=== PATIENT | female | born 1940 | race Caucasian/White ===

== ENCOUNTER 2017-09-07 07:53 | Observation (INO) | payer MEDICARE, OTHER ==
[~2017-09-07] VITALS: Ht 160 cm; Wt 96.2 kg
[~2017-09-07 07:53] MED LIST: ATORVASTATIN CA20 MG PO; CALTRATE 600 W1 EACH PO; CLOPIDOGREL75 MG PO; HYDROCHLOROTHIA25 MG PO; LISINOPRIL10 MG PO; METOPROLOL TART50 MG PO; WARFARIN SODIU2.5 MG PO
[2017-09-07 08:59] LABS: BASOPHILS % 0.3 % (0.0-1.0); EOSINOPHILS # (AUTO) 0.2 (0.0-0.4); EOSINOPHILS % 3.9 % (0.0-6.0); HEMOGLOBIN 13.1 g/dL (12.0-16.0); LYMPHOCYTES # (AUTO) 1.1 (1.0-3.2); LYMPHOCYTES % 17.2 % (18.0-39.1); MONOCYTES # (AUTO) 0.6 (0.2-0.8); MONOCYTES % 9.4 % (4.4-11.3); NEUTROPHILS # (AUTO) 4.2 (2.1-6.9); NEUTROPHILS % 68.7 % (38.7-80.0); PLATELET COUNT 160 x10e3/uL (140-360); RED CELL DISTRIBUTION WIDTH 14.6 % (11.7-14.4)
[2017-09-07 09:05] LABS: INR 0.98; PROTHROMBIN TIME 13.5 seconds (11.9-14.5)
[2017-09-07 09:18] LABS: ALBUMIN 3.6 g/dL (3.5-5.0); ALBUMIN/GLOBULIN RATIO 1.1 (0.8-2.0); ANION GAP 11.2 mmol/L (8-16); CALCIUM 9.8 mg/dL (8.4-10.2); CHOL/HDL RATIO 2.1 (3.0-3.6); CREATININE, SERUM 1.13 mg/dL (0.57-1.11); POTASSIUM 5.2 mmol/L (3.5-5.1)
[2017-09-07 09:29] VITALS: BP 144/70
[2017-09-07] MEDS ORDERED: FENTANYL CITRATE/PF 100MCG/2 ML INJ ONE (10:15)
[2017-09-07] MEDS ORDERED: SODIUM CHLORIDE 0.9% 1000ML 1,000 ML ONE ×2 (10:16→10:36)
[2017-09-07] MEDS ORDERED: HEPARIN SOD/SOD CHLORIDE 2,000 ML ONE (10:16)
[2017-09-07] MEDS ORDERED: LIDOCAINE HCL 2% LOCAL 20 ML VIAL ONE (10:16)
[2017-09-07] MEDS ORDERED: IOPAMIDOL 300MG/ML 100 ML INFUS..BTL IV ONE (10:16)
[2017-09-07] MEDS ORDERED: MIDAZOLAM HCL 2 MG/2 ML VIAL ONE (10:16)
[2017-09-07] MEDS ORDERED: VERAPAMIL HCL 2.5 MG/ML 2 ML VIAL ONE (10:36)
[2017-09-07] MEDS ORDERED: PROTAMINE SULFATE 10 MG/ML 5 ML VIAL ONE (10:56)
[2017-09-07] MEDS ORDERED: SODIUM CHLORIDE 0.9% 100 ML 100 ML ONE (10:57)
--- NOTE | 2017-09-07 11:42 | Operative Report ---
DATE OF PROCEDURE: September 07, 2017 INDICATIONS: Peripheral arterial disease with claudication. PROCEDURES PERFORMED 1. Unilateral extremity angiogram with 3rd-order catheter placement from the right femoral artery to the right popliteal artery. 2. Atherectomy and drug-coated balloon angioplasty of the right femoral artery. 3. Atherectomy and angioplasty of the right tibioperoneal trunk/posterior tibial artery. COMPLICATIONS: None. RECOMMENDATIONS: Resumption of anticoagulation with warfarin and aspirin. Access was obtained in the right femoral artery in an antegrade fashion, and a 6-Omani sheath was placed. Proximal SFA 50% , distal SFA 90%. Right anterior tibial artery is completely occluded. Right tibioperoneal trunk and ostial posterior tibial artery had 90% tandem lesions. The patient received 9,000 units of intra-arterial heparin. The lesions were crossed using a ViperWire. Orbital atherectomy of the SFA and the right posterior tibial artery was performed with large amounts of visible thrombus necessitating secondary thrombectomy with manual aspiration. Balloon angioplasty of the posterior tibial trunk/posterior tibial artery was performed using a 2.5-mm balloon, and a drug-coated 5-mm balloon was used to angioplasty the right femoral artery. Excellent end result, less than 10% stenosis, 2-vessel runoff to the right foot. No complications. Heparin was reversed with intravenous infusion of protamine. Sheath was discontinued. Patient was observed in the hospital overnight. Job#: [id number]
[2017-09-07 13:30] VITALS: BP 145/70
[2017-09-07 14:22] VITALS: BP 145/70
[2017-09-07 16:20] VITALS: BP 134/63
[2017-09-07] MEDS: SODIUM CHLORIDE 0.9% 1000ML 1,000 ML IV SCH ×2 (16:24→20:13)
[2017-09-07] MEDS ORDERED: WARFARIN SOD 2.5 MG TAB PO SCH (17:00)
[2017-09-07 20:00] VITALS: BP_SYST 134; BP_SYST 146; BP_DIAS 63; BP_DIAS 67
[2017-09-07] MEDS ORDERED: ATORVASTATIN 40 MG TAB PO SCH (21:00)
[2017-09-07] MEDS ORDERED: ATORVASTATIN 20 MG TAB PO SCH (21:00)
[2017-09-08 01:13] VITALS: BP 105/46
[2017-09-08 04:00] VITALS: BP 117/60
[2017-09-08 06:51] LABS: BASOPHILS % 0.4 % (0.0-1.0); EOSINOPHILS # (AUTO) 0.2 (0.0-0.4); EOSINOPHILS % 3.8 % (0.0-6.0); HEMOGLOBIN 11.1 g/dL (12.0-16.0); LYMPHOCYTES # (AUTO) 0.9 (1.0-3.2); LYMPHOCYTES % 18.5 % (18.0-39.1); MEAN CORPUSCULAR HEMOGLOBIN 32.7 pg (28-32); MEAN CORPUSCULAR HGB CONC 32.6 g/dL (31-35); MEAN CORPUSCULAR VOLUME 100.3 fL (81-99); MONOCYTES # (AUTO) 0.6 (0.2-0.8); MONOCYTES % 11.7 % (4.4-11.3); NEUTROPHILS # (AUTO) 3.2 (2.1-6.9); NEUTROPHILS % 65.2 % (38.7-80.0); PLATELET COUNT 121 x10e3/uL (140-360); RED BLOOD COUNT 3.39 x10e6/uL (3.6-5.1); RED CELL DISTRIBUTION WIDTH 14.8 % (11.7-14.4)
[2017-09-08 07:15] LABS: BLOOD UREA NITROGEN 34 mg/dL (7-26); BUN/CREATININE RATIO 44 (6-25); CALCIUM 8.5 mg/dL (8.4-10.2); CARBON DIOXIDE 22 mmol/L (22-29); CHLORIDE 114 mmol/L (98-107); CREATININE, SERUM 0.77 mg/dL (0.57-1.11); EST GLOMERULAR FILTRATION RATE > 60 ML/MIN (60-); GLUCOSE 106 mg/dL (74-118); SODIUM 144 mmol/L (136-145)
[2017-09-08 08:15] VITALS: BP 139/61
[2017-09-08 08:17] VITALS: BP 139/61
[2017-09-08] MEDS ORDERED: LISINOPRIL 10 MG TAB PO SCH (09:00)
[2017-09-08] MEDS ORDERED: OYST-CAL-D 500MG TABLET PO SCH (09:00)
[2017-09-08] MEDS ORDERED: LISINOPRIL 20 MG TAB PO SCH (09:00)
[2017-09-08] MEDS ORDERED: CLOPIDOGREL BISULFATE 75 MG TAB PO SCH (09:00)
[2017-09-08] MEDS ORDERED: NON-FORMULARY MEDICATION (Calcium Carbonate/Vitamin D3 (Caltrate 600 W-D Tablet) 1 TAB) PO SCH (09:00)
[2017-09-08] MEDS ORDERED: METOPROLOL TARTRATE 50 MG TAB PO SCH (09:00)
[2017-09-08] MEDS ORDERED: WARFARIN SOD 2.5 MG TAB PO SCH (09:00)
[2017-09-08] MEDS ORDERED: HYDROCHLOROTHIAZIDE 25 MG TAB PO SCH (09:00)
[2017-09-08] MEDS: SODIUM CHLORIDE 0.9% 1000ML 1,000 ML IV SCH (09:50)
[2017-09-08 12:05] VITALS: BP 106/53
[2017-09-08] MEDS ORDERED: ASPIR 8181 MG (16:10)
[2017-09-08] MEDS ORDERED: PLAVIX75 MG PO (16:10)
[2017-09-08 16:38] VITALS: BP 149/64
== END 2017-09-08 17:52 | disposition home or self-care (01) ==
LOC: CATH LAB 07:53 → IMCU 13:19
PROVIDERS: ADMIT Internal Medicine Interventional Cardiology; ATTEND Internal Medicine Interventional Cardiology
DX: I70.211 Atherosclerosis of native arteries of extremities with intermittent claudication, right leg (principal); I70.92 Chronic total occlusion of artery of the extremities; I74.3 Embolism and thrombosis of arteries of the lower extremities; I48.2 Chronic atrial fibrillation; Z79.01 Long term (current) use of anticoagulants; Z79.82 Long term (current) use of aspirin; Z79.02 Long term (current) use of antithrombotics/antiplatelets; I27.20 Pulmonary hypertension, unspecified
CPT/HCPCS: 36415 ×2; 37225; 37229; 75625; 80048; 80053; 80061; 85025 ×2; 85610; C1724; C1725 ×2; C1766; C1769 ×3; C1887; G0378 ×2; J2001; J2250; J2720; J7030 ×2; Q9967; 36140; 37224; 77002; 92924

== ENCOUNTER 2019-01-31 06:23 | Day surgery (SDC) | payer MEDICARE, OTHER ==
[2019-01-27 10:37] LABS: BASOPHILS % 0.4 % (0.0-1.0); EOSINOPHILS # (AUTO) 0.1 (0.0-0.4); HEMATOCRIT 44.6 % (34.2-44.1); HEMOGLOBIN 14.3 g/dL (12.0-16.0); LYMPHOCYTES # (AUTO) 1.2 (1.0-3.2); LYMPHOCYTES % 17.8 % (18.0-39.1); MEAN CORPUSCULAR HEMOGLOBIN 31.8 pg (28-32); MEAN CORPUSCULAR HGB CONC 32.1 g/dL (31-35); MEAN CORPUSCULAR VOLUME 99.1 fL (81-99); MONOCYTES # (AUTO) 0.6 (0.2-0.8); MONOCYTES % 7.9 % (4.4-11.3); NEUTROPHILS % 71.3 % (38.7-80.0); PLATELET COUNT 188 x10e3/uL (140-360); RED CELL DISTRIBUTION WIDTH 16.1 % (11.7-14.4)
[2019-01-27 10:52] LABS: ALBUMIN/GLOBULIN RATIO 1.4 (0.8-2.0); ANION GAP 12.2 mmol/L (8-16); CALCIUM 9.7 mg/dL (8.4-10.2); CREATININE, SERUM 1.01 mg/dL (0.57-1.11); POTASSIUM 4.2 mmol/L (3.5-5.1)
[~2019-01-31] VITALS: Ht 160 cm; Wt 84.8 kg
[~2019-01-31 06:23] MED LIST changes: +ASPIR 8181 MG; +PLAVIX75 MG PO
--- OUTSIDE RECORDS SUMMARY | 2019-01-31 06:27 | XMS REPORT | Summary of Care ---
Author Author HUNG Hightower, KVNG Organization Unknown Address Unknown Phone Unavailable Care Team Providers Care Safety Glass Installer Name Role Phone KVNG PERSAUD M.D. 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 Medications Name Dates Details Warfarin Sodium TABS Active Doxycycline Hyclate TABS * Refills: 0 Active Lisinopril TABS * Refills: 0 Active Furosemide TABS * Refills: 0 Active traMADol HCl - 50 MG Oral Tablet * Refills: 0 Active Clopidogrel Bisulfate 75 MG Oral Tablet * Refills: 0 Active Vitamin D 78549 UNIT CAPS * Refills: 0 Active L-Thyroxine 25 MCG TABS * Refills: 0 Active Atorvastatin Calcium 40 MG Oral Tablet * Refills: 0 Active Dorzolamide HCl - 2 % Ophthalmic Solution * Refills: 0 Active Latanoprost 0.005 % Ophthalmic Solution * Refills: 0 Active Geovanna Aspirin 325 MG CAPS * Refills: 0 Active Nitro-Dur 0.4 MG/HR Transdermal Patch 24 Hour * Refills: 0 Active Diclofenac Sodium 75 MG Oral Tablet Delayed Release TAKE 1 TABLET TWICE DAILY with food * Quantity: 60 Refills: 4 KVNG PERSAUD M.D. Start : 31-Aug-2018 End : 28-Jan-2019 Active Allergies and Adverse Reactions Name Dates Details No Known Drug Allergies (Allergy) Status: Active Past Medical History Name Dates Details History of Glaucoma (365.9, H40.9) Status: Resolved History of High blood pressure (401.9, I10) Status: Resolved History of Osteoporosis (733.00, M81.0) Status: Resolved Procedures Procedure Dates Details History of No history of surgery Completed Immunization Name Dates Details Immunizations not documented Family History Name Dates Details Family history of Diabetes (250.00, E11.9) Status: Active Social History Name Dates Details - Status: Name Dates Details Never smoker Vital Signs Date Test Result Details No Known Vitals to report Results Date Description Value Details Results not documented Plan of Care Name Dates Details Planned Observations Planned Goals not documented Interventions Provided Medication Changes* Diclofenac Sodium 75 MG Oral Tablet Delayed Release - Start Labs/Procedures/Imaging* [U] XRAY HAND MIN 3 VWS LEFT [id number]; Done: 31 Aug 2018 Supplies* DME; Done: 31 Aug 2018 Plan* Completed at Today's Appointment: * Sugars were reviewed and the findings were discussed in detail. Both surgical and non-surgical treatment options were discussed. Non-surgical treatment options include rest, medications, bracing, activity modification, and physical or occupational therapy. Surgical options were discussed in detail. * Patient Education/Instructions: * Elevation of Extremity * Apply Ice as Instructed * DME Orders: * Wrist Brace * Orders: * Medications: * - Diclofenac ER 75mg. Take 1 daily as needed for pain. Diclofenac ER is an anti-inflammatory, pain medication. Take with food and only as prescribed by a physician. * - Tramadol 50mg. Take 1-2 every 4-6 hours as needed for pain. Tramadol is a narcotic pain medication. Use only as directed. Do NOT drive or operate machinery while using this medication. * Follow Up: * Return to the clinic in 2 weeks or as needed. Instructions Name Dates Details Instructions not documented Encounters Appointment; KVNG PERSAUD M.D. Encounter Diagnosis: Problem not documented On: 31-Aug-2018 15:20
[2019-01-31] MEDS ORDERED: LIDOCAINE HCL 2% LOCAL 20 ML VIAL ONE (06:41)
[2019-01-31] MEDS ORDERED: HEPARIN SOD/SOD CHLORIDE 2,000 ML ONE (06:42)
[2019-01-31] MEDS ORDERED: IOPAMIDOL 300MG/ML 100 ML INFUS..BTL IV ONE (06:42)
[2019-01-31] MEDS ORDERED: LEVOTHYROXINE50 MCG PO (06:51)
[2019-01-31] MEDS ORDERED: FUROSEMIDE40 MG PO (06:51)
[2019-01-31] MEDS ORDERED: VITAMIN D250000 UNIT PEG (06:51)
[2019-01-31] MEDS ORDERED: DORZOLAMIDE-TIM10 ML OP (06:51)
[2019-01-31 07:00] VITALS: BP 130/58
[2019-01-31] MEDS ORDERED: MIDAZOLAM HCL 2 MG/2 ML VIAL ONE (07:06)
[2019-01-31] MEDS ORDERED: HEPARIN SOD (PORCINE) 1000 UNIT/ML 30ML ONE (07:06)
[2019-01-31] MEDS ORDERED: SODIUM CHLORIDE 0.9% 1000ML 1,000 ML ONE ×2 (07:07→08:15)
[2019-01-31] MEDS ORDERED: FENTANYL CITRATE/PF 100MCG/2 ML INJ ONE (07:07)
[2019-01-31] MEDS ORDERED: NITROGLYCERIN/D5W 200 MCG/ML 250 ML ONE (07:07)
[2019-01-31] MEDS ORDERED: VERAPAMIL HCL 2.5 MG/ML 2 ML VIAL ONE (08:15)
[2019-01-31] MEDS ORDERED: TICAGRELOR 90 MG TABLET ONE (08:34)
[2019-01-31] MEDS ORDERED: ASPIRIN 325 MG TAB ONE (08:34)
[2019-01-31 08:37] VITALS: BP 151/63
[2019-01-31 08:45] VITALS: BP 136/58
[2019-01-31 09:00] VITALS: BP 141/64
[2019-01-31 09:08] VITALS: BP 141/64
--- NOTE | 2019-01-31 09:13 | NUR ---
Patient admitted to recovery. Patient is AAOx3. Patient vitals stable. Left groin site clean and dry. Pedal pulses palpable. Family at bedside. Patient remains supine. NO bleeding noted to groin site
[2019-01-31 09:30] VITALS: BP 172/72
--- NOTE | 2019-01-31 11:46 | Operative Report ---
DATE OF PROCEDURE: 01/31/2019 SURGEON: Cameron Mcdonald MD INDICATION: Peripheral arterial disease, claudication of the right lower extremity. COMPLICATIONS: None. PROCEDURES PERFORMED: 1. Abdominal aortogram. 2. Bilateral lower extremity angiograms. 3. Selective catheter placement from the left femoral artery to the right superficial femoral artery. 4. Additional third-order catheter placement from the left femoral artery to the right anterior tibial artery. 5. Atherectomy and drug-coated balloon angioplasty of the right superficial femoral artery. 6. Secondary thrombectomy of the right femoral artery. 7. Deployment of left groin Perclose closure device. RECOMMENDATIONS: Staged intervention on the occluded right anterior tibial artery via pedal access. DESCRIPTION OF PROCEDURE: Access obtained in the left femoral artery using fluoroscopic guidance. A 6-Spanish sheath was placed. Abdominal aortogram demonstrated calcified abdominal aorta and iliacs with minimal disease. Right femoral artery proximally had 80% to 90% stenosis. Distal vessel was not well visualized. The catheter was then advanced from the left femoral artery to the right superficial femoral artery. Mild disease in the femoral-popliteal system. Tibial vessels were not well seen. The catheter was then advanced to the right anterior tibial artery, which was occluded in its midportion, reconstitution via the right peroneal artery with two-vessel runoff. The posterior tibial and tibioperoneal trunk on the right side had moderate 50% to 70% diffuse stenosis. Left femoral artery and popliteal artery were widely patent and infrapopliteal vessels were not well visualized in the left leg. A decision was made to intervene on the right femoral artery. The patient received 10,000 units of intravenous heparin for anticoagulation along with oral Brilinta and aspirin. Sheath was advanced from the left femoral artery to the right superficial femoral artery. Orbital atherectomy of the proximal right femoral artery was performed using the CSI 1.5 mm Burton. Large amounts of visible thrombus was noted for which manual aspiration thrombectomy was needed. Balloon angioplasty with a 6 mm Lutonix balloon was performed with excellent end result, two-vessel runoff to the right leg. Left groin sheath was removed. Perclose closure device applied without any complications. The patient was discharged home same day. MD OLIVIER Mclean/NADIR /[id number]
== END 2019-01-31 10:21 | disposition home or self-care (01) ==
LOC: CATH LAB 06:23
PROVIDERS: ATTEND Internal Medicine Interventional Cardiology
DX: I70.211 Atherosclerosis of native arteries of extremities with intermittent claudication, right leg (principal); Z01.812 Encounter for preprocedural laboratory examination; Z79.02 Long term (current) use of antithrombotics/antiplatelets; Z79.82 Long term (current) use of aspirin
CPT/HCPCS: 36415; 37186; 37225; 75625; 80053; 85025; C1724; C1725; C1769 ×2; C1887 ×2; C2623; J1644; J2001; J2250; J7030; Q9967; 36247; 75716

== ENCOUNTER → 2019-04-04 | Day surgery (SDC) | payer MEDICARE, OTHER ==
[2019-03-31 11:09] LABS: BASOPHILS % 0.5 % (0.0-1.0); EOSINOPHILS # (AUTO) 0.1 (0.0-0.4); EOSINOPHILS % 2.3 % (0.0-6.0); HEMOGLOBIN 14.4 g/dL (12.0-16.0); LYMPHOCYTES # (AUTO) 1.4 (1.0-3.2); LYMPHOCYTES % 22.5 % (18.0-39.1); MEAN CORPUSCULAR HEMOGLOBIN 32.4 pg (28-32); MEAN CORPUSCULAR VOLUME 101.4 fL (81-99); MONOCYTES # (AUTO) 0.6 (0.2-0.8); MONOCYTES % 10.3 % (4.4-11.3); NEUTROPHILS # (AUTO) 3.8 (2.1-6.9); NEUTROPHILS % 64.1 % (38.7-80.0); PLATELET COUNT 175 x10e3/uL (140-360); RED BLOOD COUNT 4.44 x10e6/uL (3.6-5.1); RED CELL DISTRIBUTION WIDTH 15.6 % (11.7-14.4)
[2019-03-31 11:22] LABS: ALBUMIN/GLOBULIN RATIO 1.3 (0.8-2.0); ANION GAP 12.2 mmol/L (8-16); CALCIUM 9.6 mg/dL (8.4-10.2); CREATININE, SERUM 1.04 mg/dL (0.57-1.11); POTASSIUM 4.2 mmol/L (3.5-5.1)
[2019-03-31 11:56] LABS: INR 1.33; PROTHROMBIN TIME 17.1 seconds (11.9-14.5)
--- NOTE | 2019-04-03 14:30 | NUR ---
Dr. Mcdonald notified of BUN 53 and eGFR 51. no new orders at this time.
[2019-04-04] VITALS (10 sets, daily range): BP systolic 143–170; BP diastolic 77–98
[~2019-04-04] VITALS: Ht 160 cm; Wt 84.4 kg
[~2019-04-04] MED LIST changes: -ASPIR 8181 MG; +ASPIR 8181 MG PO; +DORZOLAMIDE-TIM10 ML OP; +FAMOTIDINE20 MG PO; +FENTANYL CITRATE/PF 100MCG/2 ML INJ ONE; +FUROSEMIDE40 MG PO; +HEPARIN SOD/SOD CHLORIDE 2,000 ML ONE; +IOPAMIDOL 300MG/ML 100 ML INFUS..BTL IV ONE; +IOPAMIDOL 370 MG/ML 200 ML INFUS..BTL INJ ONE; +LEVOTHYROXINE50 MCG PO; +LIDOCAINE HCL 2% LOCAL 20 ML VIAL ONE; +MIDAZOLAM HCL 2 MG/2 ML VIAL ONE; +SODIUM CHLORIDE 0.9% 1000ML 1,000 ML ONE; +SODIUM CHLORIDE 0.9% 50ML 50 ML ONE; +VERAPAMIL HCL 2.5 MG/ML 2 ML VIAL ONE; +VITAMIN D250000 UNIT PO
--- NOTE | 2019-04-04 16:02 | NUR ---
7148 bedside report received from Akash DINERO. Alert oriented and appropriate, PERRLA, respirations even and unlabored to room air. Pulses x4 extremities equal and strong. Pedal pulses PT/DP 4. Cap fill brisk < 3 sec. TR band intact in Rt Foot NO gross issues pain pallor,pressure and in atrial fib w/o c/o CP or SOB, Skin warm and dry integrity appears . IV 20g to presents 100cchr via iv controller. Healthy w/o s/s of infiltration or complaint. Abdomen soft and supple. pt offered toileting, denies need to urinate or defecate. No personal affects with patient. Family daughter at bedside. Currently w/o complaint of pain or need. ds/aleta
--- NOTE | 2019-04-04 17:00 | NUR ---
1700 RADIAL Compression removal: Initial Cuff volume 10 cc 1700p -2cc Removed No hematoma/bleeding noted with normal neurovascular function. 1715p -2cc Removed No hematoma/ bleeding noted with normal neurovascular function. 1730p -2cc Removed No hematoma/bleeding noted with normal neurovascular function. 1800 -2cc Removed No hematoma/ bleeding noted with normal neurovascular function. Air removal completed. prepared for dc Stasis achieved sterile 2x2,Tegaderm, Coban dressing No hematoma, bleeding noted with normal neurovascular function. Wrist splint in place. Pt instructed on POC. Ds/Rn
--- NOTE | 2019-04-04 18:00 | NUR ---
1800 Pt meets DC criteria. Rt foot TR band site assessed for s/s of complication and presence of hematoma. Foot warm, dry, no discolor, and pulses present. IV removed from hand . Distal tip appears intact. VS WNL. Pt denies pain, sob, or need at this time. Family daughter at bedside. Review of discharge paperwork and follow up instructions. verbalized understanding. Pt to wheelchair and transported to front of hospital. Transferred to private vehicle under own strength w/o incident with DC paperwork in hand. ds/rn
--- NOTE | 2019-04-06 06:53 | Operative Report ---
DATE OF PROCEDURE: 04/04/2019 SURGEON: Cameron Mcdonald MD INDICATIONS: Peripheral arterial disease with claudication of the right lower extremity. PROCEDURES PERFORMED: 1. Ultrasound-guided access into the right dorsalis pedis artery. 2. Third-order catheter placement from the right dorsalis pedis artery to the right iliac artery with unilateral extremity angiogram. 3. Atherectomy and angioplasty of the right anterior tibial artery. 4. Secondary thrombectomy of the right anterior tibial artery. COMPLICATIONS: None. RECOMMENDATIONS: Dual antiplatelet therapy for life. DESCRIPTION OF PROCEDURE: Access obtained in the right dorsalis pedis artery using ultrasound guidance. 6-Algerian sheath was placed. 8000 units of intravenous heparin was administered for anticoagulation. Chronic total occlusion of the right anterior tibial artery was performed. Catheter was advanced from the right dorsalis pedis artery to the right iliac artery. Unilateral extremity angiogram demonstrated moderate disease in the right popliteal and femoral arteries. A decision was made to intervene on the right anterior tibial artery. The lesion was crossed using a Glidewire and the wire was exchanged to a Viper wire. Orbital atherectomy using a 1.25 mm micro crown was performed, following which a 3 mm balloon angioplasty with excellent end result, three vessel runoff to the right foot with no complications. Right foot sheath was removed. TR band was applied. The patient was discharged home same day. Cameron Mcdonald MD [facility]/MODL /[id number]
== END | disposition home or self-care (01) ==
LOC: CATH LAB 12:20
PROVIDERS: ATTEND Internal Medicine Interventional Cardiology
DX: I70.211 Atherosclerosis of native arteries of extremities with intermittent claudication, right leg (principal); I70.92 Chronic total occlusion of artery of the extremities; I48.2 Chronic atrial fibrillation; I27.20 Pulmonary hypertension, unspecified; I10 Essential (primary) hypertension; E78.00 Pure hypercholesterolemia, unspecified; Z79.01 Long term (current) use of anticoagulants; Z79.02 Long term (current) use of antithrombotics/antiplatelets; Z79.82 Long term (current) use of aspirin; Z68.32 Body mass index [BMI] 32.0-32.9, adult; Z82.49 Family history of ischemic heart disease and other diseases of the circulatory system
CPT/HCPCS: 36415; 37186; 37229; 75710; 80053; 85025; 85610; C1724; C1725; C1887 ×2; J2001; J2250; J3010; J7030; Q9967

== ENCOUNTER → 2020-03-05 | Day surgery (SDC) | payer MEDICARE, OTHER ==
[2020-02-29 12:45] LABS: BASOPHILS % 0.5 % (0.0-1.0); EOSINOPHILS # (AUTO) 0.2 (0.0-0.4); HEMATOCRIT 41.3 % (34.2-44.1); HEMOGLOBIN 12.4 g/dL (12.0-16.0); LYMPHOCYTES # (AUTO) 1.2 (1.0-3.2); LYMPHOCYTES % 19.4 % (18.0-39.1); MONOCYTES # (AUTO) 0.6 (0.2-0.8); MONOCYTES % 9.6 % (4.4-11.3); NEUTROPHILS # (AUTO) 4.3 (2.1-6.9); NEUTROPHILS % 67.2 % (38.7-80.0); PLATELET COUNT 201 x10e3/uL (140-360); RED BLOOD COUNT 4.13 x10e6/uL (3.6-5.1); RED CELL DISTRIBUTION WIDTH 14.6 % (11.7-14.4)
[2020-02-29 12:59] LABS: ALBUMIN 3.8 g/dL (3.5-5.0); ALBUMIN/GLOBULIN RATIO 1.1 (0.8-2.0); ANION GAP 12.4 mmol/L (8-16); CALCIUM 9.3 mg/dL (8.4-10.2); CREATININE, SERUM 1.19 mg/dL (0.57-1.11); POTASSIUM 4.4 mmol/L (3.5-5.1)
--- NOTE | 2020-03-01 11:34 | NUR ---
1134am phoned Charmaine Leonardo daughter Araseli who states pt has no Covid symptoms and currently quarantined for pre procedural precautions. She states Mom will bring home meds and unable to review with me medications at this time. States mother has had mutiple procedures and aware of her need.No current office history on file and will reach out to [facility] [place] to confirm anticoagulation holds. I did requested on voice mail at [facility] [place] to reach out to daughter Araseli to verify appropriate holds of med. Pre screen completed and daughter aware to contact staff if and elevation temp or conditions required case to be held. Encourage to reach out to MD office for concerns as well as soap slabber RN here to notify of cancelation needs.jose/aleta
[2020-03-05] VITALS (18 sets, daily range): BP systolic 118–172; BP diastolic 57–109
[~2020-03-05] VITALS: Ht 160 cm; Wt 90.7 kg
[~2020-03-05] MED LIST changes: -IOPAMIDOL 300MG/ML 100 ML INFUS..BTL IV ONE; +LATANOPROST2.5 ML OP; +MIRTAZIPINE PO; -SODIUM CHLORIDE 0.9% 50ML 50 ML ONE; -VERAPAMIL HCL 2.5 MG/ML 2 ML VIAL ONE
--- NOTE | 2020-03-05 08:45 | NUR ---
0845 am RECEIVING NOTE [employer] DESIGN[employer] DEPT............................................................... Bedside report received from Raymundo DINERO. Identifierx2. Alert oriented and appropriate, PERRLA, respirations even and unlabored to room air. Pulses x4 extremities equal and strong. Pedal pulses PT/DP X4 and marked. Cap fill brisk < 3 sec. Rt groin sheath .No gross issues pain,pallor pressure or dysrhythmia. Skin warm and dry integrity appears D/I. IV 20g to left wrist presents healthy w/o s/s of infiltration or complaint. Abdomen soft and supple. pt offered toileting, denies need to urinate or defecate. No personal affects with patient. Family daughter at bedside.. Pt and family verbalizes understanding of POC. Currently w/o complaint of pain or need. ds/rn
--- NOTE | 2020-03-05 09:02 | NUR ---
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 25 min hold sujey Mendieta Rn at standby Dstat applied with Tegaderm PPx4 present ds/rn
--- NOTE | 2020-03-05 09:03 | Operative Report ---
DATE OF PROCEDURE: 03/05/2020 SURGEON: Cameron Mcdonald MD INDICATION: Coronary artery disease, abnormal stress test. PROCEDURES PERFORMED: 1. Left heart catheterization, selective coronary angiography. 2. Conscious sedation, 35 minutes. BLOOD LOSS: Minimal. RECOMMENDATIONS: Medical therapy. DESCRIPTION OF PROCEDURE: Access obtained in the right femoral artery. A 6-Estonian sheath was placed. Coronary angiography demonstrated widely patent stent in the left anterior descending and circumflex artery. Mid right coronary artery 50% stenosis. No critical stenosis or occlusions were noted. No intervention deemed necessary. LV end-diastolic pressure of 14. No gradient across the aortic valve pullback. Right groin sheath removed under manual pressure. The patient discharged home same day. Cameron Mcdonald MD [facility]L /[id number]
--- NOTE | 2020-03-05 13:00 | NUR ---
1300pm ADMISSIONS [facility] DISCHARGE NURSING NOTE Pt meets DC criteria. Rt manual groin pull site assessed for s/s of complication and presence of hematoma. Skin warm, dry, no discolor, and pulses present. IV removed from left posterior iv site. Distal tip appears intact. VS WNL. Pt denies pain, sob, or need at this time. Family at bedside. Review of discharge paperwork and follow up instructions. verbalized understanding. Pt to wheelchair and transported to front of hospital. Transferred to private vehicle under own strength w/o incident with DC paperwork in hand. - jose/rn
== END | disposition home or self-care (01) ==
LOC: CATH LAB 07:20
PROVIDERS: ATTEND Internal Medicine Interventional Cardiology
DX: I25.118 Atherosclerotic heart disease of native coronary artery with other forms of angina pectoris (principal); Z01.812 Encounter for preprocedural laboratory examination; Z11.59 Encounter for screening for other viral diseases; Z95.5 Presence of coronary angioplasty implant and graft; I27.20 Pulmonary hypertension, unspecified; I73.9 Peripheral vascular disease, unspecified; I48.20 Chronic atrial fibrillation, unspecified
CPT/HCPCS: 36415; 80053; 85025; 93458; C1769; J2001; J2250; J3010; J7030; Q9967; U0002; 99152

== ENCOUNTER → 2020-06-14 | Day surgery (SDC) | payer MEDICARE, OTHER ==
[2020-06-11 09:42] LABS: BASOPHILS # (AUTO) 0.1 (0.0-0.1); BASOPHILS % 0.7 % (0.0-1.0); EOSINOPHILS # (AUTO) 0.2 (0.0-0.4); EOSINOPHILS % 2.5 % (0.0-6.0); HEMATOCRIT 41.4 % (34.2-44.1); HEMOGLOBIN 12.8 g/dL (12.0-16.0); LYMPHOCYTES # (AUTO) 1.2 (1.0-3.2); LYMPHOCYTES % 15.3 % (18.0-39.1); MEAN CORPUSCULAR HEMOGLOBIN 31.8 pg (28-32); MEAN CORPUSCULAR HGB CONC 30.9 g/dL (31-35); MEAN CORPUSCULAR VOLUME 102.7 fL (81-99); MONOCYTES # (AUTO) 0.7 (0.2-0.8); MONOCYTES % 9.3 % (4.4-11.3); NEUTROPHILS # (AUTO) 5.5 (2.1-6.9); NEUTROPHILS % 71.7 % (38.7-80.0); PLATELET COUNT 227 x10e3/uL (140-360); RED BLOOD COUNT 4.03 x10e6/uL (3.6-5.1)
[~2020-06-14] VITALS: Ht 162.6 cm; Wt 94.3 kg
[~2020-06-14] MED LIST changes: -FENTANYL CITRATE/PF 100MCG/2 ML INJ ONE; -HEPARIN SOD/SOD CHLORIDE 2,000 ML ONE; -IOPAMIDOL 370 MG/ML 200 ML INFUS..BTL INJ ONE; -LIDOCAINE HCL 2% LOCAL 20 ML VIAL ONE; -MIDAZOLAM HCL 2 MG/2 ML VIAL ONE; -SODIUM CHLORIDE 0.9% 1000ML 1,000 ML ONE
[2020-06-14 09:56] LABS: INR 1.56; PROTHROMBIN TIME 19.4 seconds (11.9-14.5)
[2020-06-14 09:57] LABS: PARTIAL THROMBOPLASTIN TIME 31.1 seconds (23.8-35.5)
[2020-06-14 11:08] VITALS: BP 152/85
--- NOTE | 2020-06-14 11:59 | Operative Report ---
DATE OF PROCEDURE: 06/14/2020 SURGEON: Michele Ramos MD PROCEDURES: EGD with biopsies. ADDITIONAL REFERRING PHYSICIAN: Dr. Cameron Mcdonald. INDICATIONS FOR EGD: Heartburn, acid reflux. MEDICATIONS: The patient was done under MAC, please see anesthesiologist's note. PROCEDURE IN DETAIL: With the patient in the left lateral decubitus position, a flexible fiberoptic Olympus gastroscope was introduced into the esophagus under direct visualization without any difficulty. There was some patchy erythema noted in distal esophagus. The scope was then advanced with ease into the stomach traversing a medium-size hiatal hernia. Mucosa overlying the antrum and the body revealed some patchy erythema and [id number] edema, and biopsies were obtained and sent to stain for H. pylori. An approximately 2 cm sessile lesion distal antrum peripyloric area that was somewhat umbilicated, suspicious for leiomyoma was biopsied. Pylorus was of normal contour and shape, was intubated with ease and the scope was advanced all the way to the second portion of the duodenum. Mucosa overlying the proximal second portion and the duodenal bulb appeared to be within normal limits. The scope was then withdrawn back into the stomach and retroflexed, mucosa overlying the fundus appeared to be within normal limits. The previously described hiatal hernia was also noted in the retroflexed position. The scope was then straightened out, it was subsequently withdrawn, and the patient tolerated the procedure well. IMPRESSION: 1. Distal esophagitis, mild. 2. Medium-sized hiatal hernia. 3. Gastritis, biopsied, biopsies sent to stain for Helicobacter pylori. 4. Rule out leiomyoma. PLAN: Follow up histology. Initiate Protonix 40 mg one p.o. q.a.m. before meals. Michele Ramos MD [facility]/MODL /[id number] cc: MD Panfilo Mclean MD
== END | disposition home or self-care (01) ==
LOC: OR 06:03
PROVIDERS: ATTEND Internal Medicine Gastroenterology
DX: K29.70 Gastritis, unspecified, without bleeding (principal); K20.90 Esophagitis, unspecified without bleeding; K21.9 Gastro-esophageal reflux disease without esophagitis; K44.9 Diaphragmatic hernia without obstruction or gangrene; K31.89 Other diseases of stomach and duodenum; K59.09 Other constipation; R04.2 Hemoptysis; R49.9 Unspecified voice and resonance disorder; I48.91 Unspecified atrial fibrillation; E03.9 Hypothyroidism, unspecified; I10 Essential (primary) hypertension; H40.9 Unspecified glaucoma; Z01.810 Encounter for preprocedural cardiovascular examination; Z01.812 Encounter for preprocedural laboratory examination; Z11.59 Encounter for screening for other viral diseases; Z79.01 Long term (current) use of anticoagulants; Z79.82 Long term (current) use of aspirin; Z68.34 Body mass index [BMI] 34.0-34.9, adult
CPT/HCPCS: 36415 ×2; 43239; 85025; 85610; 85730; 88305; 88312; 93005; U0002